=== PATIENT | male | born 1935 ===

== ENCOUNTER 2016-12-30 09:53 | Emergency (ER) | payer OTHER, SELFPAY ==
[2016-12-30 10:41] LABS: #Eosinphils 0.3 thou/uL (0.0-0.7); #Lymphocytes 0.9 thou/uL (1.20-3.40); #Monocytes 0.6 thou/uL (0.11-0.59); %Basophils 0.1 % (0.0-1.0); %Lymphocytes 19.3 % (21.0-51.0); %Monocytes 12.7 % (0.0-10.0); Hematocrit 38.7 % (42.0-52.0); Mean Platelet Volume 6.2 fL (7.4-10.4); Red Blood Cell (RBC) Count 3.97 mill/uL (4.70-6.10); White Blood Cell (WBC) Count 4.8 thou/uL (4.8-10.8)
[2016-12-30 10:57] LABS: PTT 39.5 SEC (22.9-36.1); Prothrombin Time 25.8 SEC (12.0-14.7)
[2016-12-30 11:01] LABS: ALT (SGPT) 17 U/L (8-55); AST (SGOT) 24 U/L (5-34); Alkaline Phosphatase 77 U/L (40-150); Anion Gap 13 mmol/L (10-20); BUN (Urea Nitrogen) 22 mg/dL (8.4-25.7); Bilirubin, Total 0.9 mg/dL (0.2-1.2); Calc. Creatinine Clearance 0 mL/min (70-130); Calcium 9.7 mg/dL (7.8-10.44); Carbon Dioxide 27 mmol/L (23-31); Chloride 100 mmol/L (98-107); Estimated GFR-MDRD 50; Globulin 3.7 g/dL (2.4-3.5)
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
[2016-12-30] MEDS ORDERED: Meclizine HCl 25 MG TAB ONE (14:22)
== END 2016-12-30 14:24 | disposition home or self-care (01) ==
LOC: ERS 09:53
DX: S00.03XA Contusion of scalp, initial encounter (principal); I10 Essential (primary) hypertension; I25.10 Atherosclerotic heart disease of native coronary artery without angina pectoris; Z86.73 Personal history of transient ischemic attack (TIA), and cerebral infarction without residual deficits; Z79.01 Long term (current) use of anticoagulants; Z79.899 Other long term (current) drug therapy; V03.99XA Pedestrian with other conveyance injured in collision with car, pick-up truck or van, unspecified whether traffic or nontraffic accident, initial encounter
CPT/HCPCS: 36415; 70450; 72125; 80053; 85025; 85610; 85730